=== PATIENT | male | born 1975 | race Caucasian/White ===

== ENCOUNTER 2020-10-22 20:10 | Emergency (ER) | payer OTHER ==
[~2020-10-22] VITALS: Ht 180.3 cm; Wt 90.7 kg
[2020-10-22 20:28] VITALS: Ht 180.3 cm; Wt 90.7 kg
[2020-10-22 21:51] VITALS: BP 158/109
== END 2020-10-22 21:51 | disposition home or self-care (01) ==
LOC: ED 20:10
DX: H10.9 Unspecified conjunctivitis (principal); F17.210 Nicotine dependence, cigarettes, uncomplicated